=== PATIENT | female | born 1975 | race African-American/Black ===

== ENCOUNTER 2024-12-22 08:18 | Emergency (ER) | payer OTHER, SELFPAY ==
--- NOTE | 2024-12-22 08:25 | ED.UPPEXIN ---
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 Patient states she felt a pop is now having pain. Denies any numbness, tingling or weakness to extremities. Related Data Allergies Allergy/AdvReac Type Severity Reaction Status Date / Time No Known Allergies Allergy Verified 12/22/24 08:34 Review of Systems Review of Systems: All systems reviewed & are unremarkable except as noted in HPI and below Constitutional: Constitutional: Denies body ache(s), Denies chills, Denies fatigue, Denies fever(s), Denies headache(s), Denies malaise and Denies weakness Eyes: Eyes: Denies blurry vision, Denies irritation and Denies loss of vision ENT: Denies otalgia, Denies headache(s), Denies nasal discharge, Denies sinus pain and Denies sore throat Cardiovascular: Cardiovascular: Denies chest pain, Denies irregular heart rhythm and Denies dyspnea Respiratory: Respiratory: Denies dyspnea Gastrointestinal: Gastrointestinal: Denies abdominal pain, Denies melena, Denies hematochezia, Denies diarrhea, Denies nausea and Denies vomiting Musculoskeletal: Musculoskeletal: Denies back pain, Denies myalgias and Reports arthralgias Integumentary/Breasts: Skin/Breast: Denies pruritus and Denies rash Neurologic: Denies headache(s), Denies loss of vision and Denies weakness Psychiatric: Psychiatric: Reports no additional psychiatric complaints Endocrine: Endocrine: Denies fatigue PMFSH Comments At time of signature, agree with nursing past medical, surgical, social and family history. There is no relevant family history pertinent to the presenting complaint. Exam Const: General: cooperative, healthy appearing, comfortable, no acute distress and well nourished Nutritional Appearance: well nourished Orientation/consciousness: patient oriented x3 Limitations: no limitations HENMT: Head: normal to inspection, normocephalic and atraumatic Ears: hearing grossly normal bilaterally and external ears normal Face/Nose/Sinus: Normal external nose present, normal facial exam and face symmetric Face and sinus: normal facial exam and face symmetric Mouth: Yes lip normal Eyes: General: appearance normal, both eyes and all related structures Alignment and Position: alignment normal and position normal Periorbital: periorbital findings normal Eyelids: eyelids normal Pupils: Equal, round and reactive pupils present EOM: EOMs intact bilaterally Neck: Neck: normal visual inspection, full ROM and supple Chest: Chest palpation & inspection: normal inspection of the chest Resp: Effort & Inspection: normal respiratory effort and able to speak in complete sentences Auscultation: clear to auscultation bilaterally Cardio: Rate: regular rate Rhythm: regular rhythm Heart sounds: S1 normal heart sound present and S2 normal heart sound present GI: Inspection: normal to inspection Skin: General skin exam: normal color and no rashes or lesions noted Neuro: General: patient oriented x3 and moves all extremities Cranial nerves: Yes Equal, round and reactive pupils present Speech: normal speech Gait exam (Neuro): Normal gait present Extrem: General: normal to inspection, full ROM and no edema Right upper extremity: shoulder/upper arm tenderness of the A-C joint (posterior) and of the scapula (top), axillary nerve sensory function normal and abnormal ROM pain with active ROM (both when going over 90 degrees) in ABduction and in flexion; no swelling, no ecchymosis and no deformity and elbow/forearm normal to inspection, normal ROM and distal pulses intact; no tenderness and no swelling Psych: Appearance: grossly normal and well kempt Mental Status: mental status grossly normal Speech and movement: Normal speech and movement present Affect: normal affect Attitude: cooperative Thought process: Normal thought process present Course Course Emergency Course: Patient is aware of diagnosis, understands and agrees to treatment plan. Anticipatory guidance given. Patient agrees to follow-up as directed and is aware of reasons to seek care at the emergency department. Portions of this record may have been created with voice recognition software Level of Care: Express Care Visit Vital Signs Vital signs: Reviewed MDM - Extremity Injury (Upper) MDM Narrative Medical decision making narrative: Inform patient we do not complete workman's comp paperwork. Providing patient with sling for support. Discussed importance of continuing to move shoulder throughout the day. Patient does not have a PCP at this time. Will provide referral and number to call to establish care. Pt well hydrated appearing, in no respiratory distress, hemodynamically stable. Recommend supportive care. The patient is stable at time of discharge the clinical impression was discussed and the patient was given the opportunity to ask questions, which were addressed as completely as possible given the information available at present. Anticipatory guidance and return to care precautions were discussed and the importance of primary care follow-up was stressed and encouraged. The patient voiced understanding of the plan, indications to return, and the need for follow-up. Exam findings show no acute concerns or changes Patient is appropriate for outpatient treatment and follow-up. Differential Diagnosis Differential diagnosis: Likely dislocation of shoulder and other (Shoulder strain, rotator cuff tear) Medical Records Attestation: I reviewed the patient's medical records. Discharge Plan Discharge Clinical Impression: Right shoulder strain Patient Disposition: Home, Self-Care Condition: Stable Instructions: Shoulder Sprain (ED) Additional Instructions: Minimize activities that aggravate the condition The RICE protocol. Follow the RICE protocol as soon as possible after your injury:. Ice should be immediately applied to keep the swelling down. It can be used for 20 to 30 minutes, three or four times daily. Do not apply ice directly to your skin. Use sling as needed for support. Throughout the day make sure you are taking arm out of sling and doing gentle exercises Medication: Take steroids in the morning with food. Use muscle relaxers as needed, they may make you sleepy. Please schedule a follow-up visit with your personal physician for further evaluation and treatment within 1week OR If your symptoms persist, change or worsen significantly before you can contact your personal physician then please, without delay, go to the emergency department for further evaluation. If you are having a hard time finding a physician please call our [facility] group liaison at [phone]. Patient Language: Turkmen Prescriptions: New prednisone 20 mg tablet 40 mg PO DAILY 5 Days Qty: 10 0RF baclofen 10 mg tablet 10 mg PO TID 5 Days Qty: 15 0RF Follow-up/Referrals: Ama Pisano DO [Physician] - 3 Days (Establish care) Stand Alone Forms: Work/School Release IP Time of Disposition: 09:00
--- OUTSIDE RECORDS SUMMARY | 2024-12-22 08:32 | XMS_ITS | Clinical Summary ---
Author Organization [facility] Address [address] [place] [address] Care Team Providers Care Dial Buffer Name Role Phone Jamie Dixon MD Primary Care Provider Allergies No known active allergies Medications oxyCODONE-aceta minophen (PERCOCET) 5-325 mg per tabletIndicatio ns:Pain Take 1 tablet by mouth every 4 (four) hours as needed for pain 15 tablet 2 Active Additional Information Patient not taking.Reported on 02/12/2023 calcium carbonate-vitam in D3 1,250mg (500mg elemental) - 5 mcg (200 units) per tablet Take 1 tablet by mouth 2 (two) times a day with meals Active cholecalciferol (VITAMIN D-3) 25 mcg (1,000 unit) tablet Take 1,000 Units by mouth daily 2 Active fluticasone propionate (FLONASE) 50 mcg/actuation nasal spray SPRAY 2 SPRAYS INTO EACH NOSTRIL EVERY DAY NEEDED 2 Active loratadine (CLARITIN) 10 mg tablet Take 1 tablet (10 mg total) by mouth daily as needed 2 Active metroNIDAZOLE (FLAGYL) 500 mg tablet TAKE 1 TABLET BY MOUTH TWICE A DAY FOR 7 DAYS 3 Active peg 400-propylene glycol (SYSTANE) 0.4-0.3 % ophthalmic solution INSTILL 1 - 2 DROPS TO AFFECTED EYE(S) NEEDED. 2 Active bacitracin 500 unit/gram ointment Apply topically 2 (two) times a day 120 g 3 Active Active Problems Problem Noted Date Diagnosed Date Pelvic and perineal pain 02/12/2023 Assessment & Plan (02/12/2023 2:00 PM CDT): colonoscopy Family history of colon cancer 02/12/2023 Moderate obstructive sleep apnea 01/29/2022 Encounter for screening colonoscopy 05/17/2021 Overview (05/17/2021): Added automatically from request for surgery [id number] Metatarsalgia of both feet 12/18/2017 Hammer toes of both feet 12/18/2017 Immunizations Immunization Administration Dates Next Due Tdap 03/01/2023 Surgical History Surgery Date Site/Laterality Comments TUBAL LIGATION 2005 Bilateral tubal ligation APPENDECTOMY 1988 Appendectomy Medical History Medical History Date Comments Hx Other Medical ; Outc ome: Unknown sex Family History Medical History Relation Name Comments Breast cancer Mother Cancer -breast ; Relation Name Status Comments Mother Social History Tobacco Use Types Packs/Day Years Used Date Smoking Tobacco: Every Day Cigarettes Tobacco Cessation:Ready to Q uit: Not Asked; Counseling Given: Not Answered Comments:Smoking History Packs/day: 20 Packs Alcohol Use Standard Drinks/Week Comments Yes 0 (1 standard drink = 0.6 oz pur e alcohol) Personal Safety Answer Date Recorded Have you ever been in or are you currently in a harmful physical or emotional relationship or is someone making you feel afraid or unsafe? 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 Gender Identity Not on file Sexual Orientation Not on file Obstetrics History Para Term AB IAB SAB Ectopic Multiple Livin g Live Births 3 3 3 Date Outcome GA Total Labor Labor/2nd/3rd Weight Sex Type Anes PTL Zulay A1 A5 Name Clin Term Term Term Last Filed Vital Signs Vital Sign Reading Time Taken Comments Blood Pressure 137/92 03/01/2023 4:30 PM CDT Pulse 67 03/01/2023 4:30 PM CDT Temperature 36.8 C (98.2 F) 03/01/2023 2:06 PM CDT Respiratory Rate 18 03/01/2023 2:06 PM CDT Oxygen Saturation 100% 03/01/2023 4:30 PM CDT Inhaled Oxygen Concentration - - Weight 97.6 kg (215 lb 2.7 oz) 03/01/2023 2:06 P M CDT Height 170.2 cm (5' 7 ) 02/12/2023 1:41 PM CDT Body Mass Index 33.7 02/12/2023 1:41 PM CDT Plan of Treatment Health Maintenance Due Date Last Done Comments Colon Cancer Screening-Colonoscopy 1973 Depression Screening 1973 Hepatitis C Screening 1973 Regular Well Visit/Exam 18-64 1991 Pneumococcal vaccine <65 (1 of 2 - PCV) 1992 Breast Cancer Screening-Mammogram 03/29/2023 03/29/2022, 03/14/2021, 06/17/2013 Zoster Vaccine (1 of 2) 2023 Influenza Vaccine (#1) 2024 , 08/07/2021, 07/27/2019, Additional history exists DTaP/Tdap/Td Vaccine (8 - Td or Tdap) 03/01/2033 03/01/2023, 02/28/2015, 07/21/1993, Additional history exists Hepatitis B Screening Completed 08/18/2021 , 03/24/2021, 02/22/2021 Procedures Procedure Name Priority Date/Time Associated Diagnosis Comments SCREENING MAMMOGRAM BILATERAL W DARIO Schedule Routine, Read Routine (OP Routine) 03/29/2022 12:34 PM CDT Screening mammogram, encounter for from Last 3 Months or Most Recently Relevant to Health Maintenance Results * (ABNORMAL) Screening Mammogram Bilateral W Dario (03/29/2022 12:34 PM CDT) Anatomical Region Laterality Modality Breast Bilateral Mammography 03/29/2022 12:5 0 PM CDT Impressions 03/29/2022 12:50 PM CDT 1. Indeterminant oval circumscribed mass within the right breast at anterior depth/lateral subareolar region. Recommend further evaluation with diagnostic right mammogram and ultrasound. 2. Indeterminate focal asymmetry within the left breast at approximately 12 o'clock position. Recommend further evaluation with diagnostic left mammogram with possible ultrasound. BI-RADS: 0 - Additional imaging evaluation is necessary. The patient has been or will be contacted. Electronically signed by: Jay Dodson M.D. Narrative 03/29/2022 12:50 PM CDT EXAMINATION: SCREENING MAMMOGRAM BILATERAL W DARIO ORDERING HEALTHCARE PROVIDER: SELF SCREENING MAMMOGRAM HISTORY: Routine screening mammography. Mother with breast cancer. COMPARISON: 03/15/2021, 06/17/2013 TECHNIQUE: CC and MLO views of the bilateral breasts were obtained with digital technique using breast tomosynthesis with C view. Computer aided detection was utilized. FINDINGS: DENSITY: There are scattered fibroglandular elements in the bilateral breasts. BREASTS: There is an oval circumscribed mass within the right breast anterior depth lateral subareolar region/upper outer quadrant. There is a focal asymmetry within the left breast at approximately 12 o'clock position middle depth. us Self Screening Mammogram IMG MAMMO PROCEDURES Fi nal Result from Last 3 Months or Most Recently Relevant to Health Maintenance Insurance [facility] Care Teams Dial Buffer Relationship Specialty Start Date End Date Jamie Dixon MD PCP - General 03/14/21
--- OUTSIDE RECORDS SUMMARY | 2024-12-22 08:32 | XMS_ITS | Referral Summary ---
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
--- OUTSIDE RECORDS SUMMARY | 2024-12-22 08:32 | XMS_ITS | Clinical Summary ---
Author Organization [facility] Address [address] [place] [address] Phone Care Team Providers Care Forest Engineer Name Role Phone Jamie Dixon MD Primary Care Provider Allergies No known active allergies Medications [facility] CALCIUM 600+D 600-800 MG-UNIT Tablet TAKE 1 TABLET(S) TWICE A DAY BY ORAL ROUTE. 6 09/30/2017 Active ferrous sulfate 325 (65 Fe) MG Tablet TAKE 1 TABLET TWICE DAILY 6 11/18/2017 Active Active Problems Problem Noted Date Diagnosed Date Hammer toes of both feet 12/18/2017 Pain in both feet 12/18/2017 [place] or callus 12/18/2017 Metatarsalgia of both feet 12/18/2017 Family History Medical History Relation Name Comments Breast Cancer Maternal Grandmother Breast Cancer Mother Breast Cancer Paternal Aunt Relation Name Status Comments Maternal Grandmother Mother Paternal Aunt Social History Tobacco Use Types Packs/Day Years Used Date Smoking Tobacco: Every Day Cigarettes 0.5 29.2 Started: 10/28/1995 Smokeless Tobacco: Never Tobacco Cessation:Ready to Q uit: Yes Alcohol Use Standard Drinks/Week Comments No 0 (1 standard drink = 0.6 oz pur e alcohol) Comments No Sex and Gender Information Value Date Recorded Sex Assigned at Not on file Legal Sex Female 9:54 PM CDT Gender Identity Not on file Sexual Orientation Not on file Last Filed Vital Signs Vital Sign Reading Time Taken Comments Blood Pressure 120/70 12/18/2017 9:41 AM REPLACER Pulse 87 12/18/2017 9:41 AM REPLACER Temperature 36.7 C (98.1 F) 12/18/2017 9:41 AM REPLACER Respiratory Rate 18 12/18/2017 9:41 AM REPLACER Oxygen Saturation 98% 12/18/2017 9:41 AM REPLACER Inhaled Oxygen Concentration - - Weight 83.9 kg (185 lb) 12/18/2017 9:41 AM REPLACER Height 170.2 cm (5' 7 ) 12/18/2017 9:41 AM REPLACER Body Mass Index 28.98 12/18/2017 9:41 AM REPLACER Plan of Treatment Health Maintenance Due Date Last Done Comments Hepatitis C Virus (HCV) Screening 1973 Pap Smear 1994 Cervical Cancer Screening (CCS) 2003 HPV/Cotest 2003 Colonoscopy 2018 Colorectal Cancer Screening 2018 Cologuard 2023 Immunochemical Fecal Occult Blood 2023 Pneumococcal Immunization (50+ years) (1 of 1 - PCV) 2023 Zoster Immunization (1 of 2) 2023 Mammogram 05/23/2024 05/23/2023, 10/28, 04/13/2022, Additional history exists Influenza Immunization (#1) 2024 10/0 06/2022, 08/07/2021, 07/27/2019, Additional history exists SARS-COV-2 Immunization ( season) 2024 08/05/2022, 08/07/2021, 12/06/2020, Additional history exists Respiratory Syncytial Virus (RSV) Immunization (Adult) (1 - 1-dose 75+ series) 2048 Hepatitis B Immunization Completed 021, 03/24/2021, 02/22/2021 DTaP/Tdap/Td Immunization Discontinued 2022, 02/28/2015, 07/21/1993, Additional history exists TdaP Immunization Completed 03/01/2023, 02/28/2015 Discussion re Starting/Frequency of Mammograms Discontinued 05/23/2023, 11/08/2022, 04/13/2022, Additional history exists Meningococcal Immunization (ACWY) Aged Out No longer eligible based on patient's age to complete this topic Pneumococcal Immunization Combined Aged Out No longer eligible based on patient's age to complete this topic Rotavirus Immunization Aged Out No lo nger eligible based on patient's age to complete this topic Procedures Procedure Name Priority Date/Time Associated Diagnosis Comments RAPHAEL DIAG BILATERAL DIGITAL W CAD W DEMI Routine 05/23/2023 10:36 AM CDT Other abnormal and inconclusive findings on diagnostic imaging of breast from Last 3 Months or Most Recently Relevant to Health Maintenance Results * RAPHAEL DIAG BILATERAL DIGITAL W CAD W DEMI (05/23/2023 10:36 AM CDT) Anatomical Region Laterality Modality breast Bilateral Mammography 05/23/2023 10:0 8 AM CDT Narrative 05/23/2023 12:18 PM CDT - RAPHAEL DIAG BILATERAL DIGITAL W CAD W DEMI BILATERAL DIGITAL DIAGNOSTIC MAMMOGRAM 3D/2D WITH CAD WITH MEDIOLATERAL OBLIQUE CRANIOCAUDAL: 05/23/2023 The study was acquired using digital technology and interpreted from soft copy. Current study was also evaluated with SpaceClaimD version 7.2. 2D digital mammographic views, as well as 3D digital tomosynthesis were performed in the CC and MLO projections. CLINICAL: Diagnostic study. Patient returns for a 6 month follow-up both breasts. No personal history of cancer. Mother with breast cancer. Maternal grandmother and paternal aunt had breast cancer. COMPARISONS: Comparison is made to exams dated: 11/08/2022, 04/13/2022 [facility], 03/29/2022, and 03/14/2021 [facility]. BREAST TISSUE:There are scattered fibroglandular densities in both breasts. FINDINGS: The previously seen focal asymmetry at the 12 o'clock position of the left breast, middle depth is stable. No correlating sonographic lesion was seen. This will continue to be classified as probably benign. No other significant masses, calcifications, or other findings are seen in either breast. IMPRESSION: BI-RAD 3 PROBABLY BENIGN Focal asymmetry in the left breast will continue to be classified as probably benign. A follow-up mammogram in 12 months is recommended. The results and recommendations were discussed with the patient. Electronically signed by: Jasmin Rader M.D. ll/:05/23/2023 10:31:02 Planting Material Unloader(s): RT Rosio(R)(M), [facility] letter sent: Birad 3 Followup Reading location: SMALL BI-RADS: 3 Probably benign Procedure Note Jasmin Rader MD - 05/23/2023 - RAPHAEL DIAG BILATERAL DIGITAL W CAD W DEMI BILATERAL DIGITAL DIAGNOSTIC MAMMOGRAM 3D/2D WITH CAD WITH MEDIOLATERAL OBLIQUE CRANIOCAUDAL: 05/23/2023 The study was acquired using digital technology and interpreted from soft copy. Current study was also evaluated with ICAD version 7.2. 2D digital mammographic views, as well as 3D digital tomosynthesis were performed in the CC and MLO projections. CLINICAL: Diagnostic study. Patient returns for a 6 month follow-up both breasts. No personal history of cancer. Mother with breast cancer. Maternal grandmother and paternal aunt had breast cancer. COMPARISONS: Comparison is made to exams dated: 11/08/2022, 04/13/2022 [facility], 03/29/2022, and 03/14/2021 [facility]. BREAST TISSUE:There are scattered fibroglandular densities in both breasts. FINDINGS: The previously seen focal asymmetry at the 12 o'clock position of the left breast, middle depth is stable. No correlating sonographic lesion was seen. This will continue to be classified as probably benign. No other significant masses, calcifications, or other findings are seen in either breast. IMPRESSION: BI-RAD 3 PROBABLY BENIGN Focal asymmetry in the left breast will continue to be classified as probably benign. A follow-up mammogram in 12 months is recommended. The results and recommendations were discussed with the patient. Electronically signed by: Jasmin Rader M.D. ll/:05/23/2023 10:31:02 Planting Material Unloader(s): RT Rosio(R)(M), [facility] [place] sent: Birad 3 Followup Reading location: SMALL BI-RADS: 3 Probably benign Jamie Dixon MD IMG MAMMO ORDERABLES Final Result from Last 3 Months or Most Recently Relevant to Health Maintenance Care Teams Forest Engineer Relationship Specialty Start Date End Date Jamie Dixon MD [address] [place] [address] PCP - General Internal Medicine 11/06/21
[2024-12-22 08:39] VITALS: BP 106/68; PULSE 85; RESP 17; TEMP 35.8; O2SAT 100
== END 2024-12-22 09:08 | disposition home or self-care (01) ==
PROVIDERS: Emergency Provider Nurse Practitioner Family
DX: S46.911A Strain of unspecified muscle, fascia and tendon at shoulder and upper arm level, right arm, initial encounter (principal); X50.0XXA Overexertion from strenuous movement or load, initial encounter; Y99.0 Civilian activity done for income or pay
CPT/HCPCS: 99203; A4565; G0463